=== PATIENT | female | born 2005 | race Caucasian/White ===

== ENCOUNTER 2024-07-11 21:31 | Emergency (ER) | payer BC, SELFPAY ==
[2024-07-11] VITALS (20 sets, daily range): BP systolic 119–148; BP diastolic 79–92; PULSE 79–95; TEMP 37.1; O2SAT 97–98; BMI 42.9
--- NOTE | 2024-07-11 22:23 | ED_ITS ---
HPI - Arrhythmia/Palpitations General Chief Complaint: Arrhythmia/Palpitations Stated Complaint: RACING HEART Time Seen by Provider: 07/11/24 22:14 Source: patient Mode of arrival: walk-in Limitations: no limitations History of Present Illness HPI narrative: presents complaining of racing heart. States episode yesterday and again tonight. Seen at [facility] at the beginning of this week for the same and states she was found to have mild hypomagnesemia and hypokalemia. Was prescribed prozac by her PCP over a month ago for anxiety but d/shona it because it caused her to have chest pain. Now prescribed ativan to take prn. States it help with the anxiety but not the heart rate feels now her heart is racing even though on the monitor she is NSR Related Data Allergies Allergy/AdvReac Type Severity Reaction Status Date / Time No Known Drug Allergies Allergy Verified 07/11/24 21:35 Review of Systems ROS Status of ROS 10 or more systems reviewed and unremark able except as noted in history and below PFSH PFSH Social History Little interest or pleasure in doing things: not at all Feeling down, depressed, or hopeless: not at all Exam Constitutional Vital Signs, click to edit/add: Last Vital Signs Temp 98.7 F 07/11/24 21:35 Pulse 86 07/11/24 23:40 Resp 18 07/11/24 23:40 BP 119/79 07/11/24 22:31 Pulse Ox 97 07/11/24 22:40 O2 Del Method Room Air 07/11/24 21:35 Common normals: no apparent distress, average body habitus, oriented x3, no limitations, healthy appearing, alert and well nourished [facility] Common normals: normocephalic and head/scalp atraumatic Eye Common normals: EOMs intact bilaterally and conjunctivae normal Respiratory Common normals: normal respiratory effort, no retractions, no use of accessory muscles and clear to auscultation bilaterally Cardio Common normals: regular rate, regular rhythm, S1 normal heart sound and S2 normal heart sound GI Common normals: Normal to inspection, nondistended, normoactive bowel sounds present, soft to palpation and non-tender Extremity Common normals: normal to inspection and full ROM Neuro Common normals: oriented x3, CN's II-XII intact bilaterally, moves all extremities, no focal motor deficits and no sensory deficits noted Psych Appearance: grossly normal Course Vital Signs Vital signs: Vital Signs Temperature 98.7 F 07/11/24 21:35 Pulse Rate 84 07/11/24 21:35 Respiratory Rate 99 H 07/11/24 21:35 Blood Pressure 148/92 H 07/11/24 21:35 Pulse Oximetry 98 07/11/24 21:35 Oxygen Delivery Method Room Air 07/11/24 21:35 Temperature 98.7 F 07/11/24 21:35 Pulse Rate 86 07/11/24 23:40 Respiratory Rate 18 07/11/24 23:40 Blood Pressure 119/79 07/11/24 22:31 Pulse Oximetry 97 07/11/24 22:40 Oxygen Delivery Method Room Air 07/11/24 21:35 MDM - Arrhythmia/Palpitations MDM Narrative Medical decision making narrative: patient presents with sensation of heart racing. on monitor she is in NSR and still complains of sensation of heart racing. Her exam is neg. Her labs, cxray and EKG normal. Patient informed of working diagnosis of anxiety and discharged home Lab Data Labs: Lab Results 07/11/24 Range/Units 22:55 WBC 8.7 (4.0-11.0) 10^3/uL RBC 4.97 (4.20-5.40) 10^6/uL Hgb 12.3 (12.0-16.0) g/dL Hct 39.4 (36.0-48.0) % MCV 79.3 L (81.0-99.0) fL MCH 24.7 L (26.7-34.0) pg MCHC 31.2 (29.9-35.2) g/dL RDW 13.9 (11.0-15.0) % Plt Count 362 (150-450) 10^3/uL MPV 9.9 (9.5-13.5) fL Neut % (Auto) 68.4 (43.0-75.0) % Lymph % (Auto) 23.6 (20.5-60.0) % [place] % (Auto) 6.5 (1.7-12.0) % Eos % (Auto) 1.1 (0.9-7.0) % Baso % (Auto) 0.2 (0.2-2.0) % Neut # (Auto) 6.0 (1.4-6.5) 10^3/uL Lymph # (Auto) 2.1 (1.2-3.8) 10^3/uL [place] # (Auto) 0.6 (0.3-0.8) 10^3/uL Eos # (Auto) 0.1 (0.0-0.7) 10^3/uL Baso # (Auto) 0.0 (0.0-0.1) 10^3/uL Abs Immat Gran (auto) 0.02 (0.00-0.03) 10^3/uL Imm/Tot Granulo (auto) 0.2 (0.0-0.5) % Sodium 138 (136-145) mmol/L Potassium 3.9 (3.5-5.1) mmol/L Chloride 104 (98-107) mmol/L Carbon Dioxide 27.3 (21.0-32.0) mmol/L Anion Gap 10.6 BUN 10.0 (6.4-19.3) mg/dL Creatinine 0.77 (0.55-1.02) mg/dL Est GFR ( Amer) >60 (>=60) Est GFR (Non-Af Amer) >60 (>=60) BUN/Creatinine Ratio 13.0 Glucose 105 (74-106) mg/dL Calcium 9.0 (8.5-10.1) mg/dL Troponin I High Sens 4.9 (4.0-51.3) pg/mL Discharge Plan Discharge Chief Complaint: Arrhythmia/Palpitations Clinical Impression: Anxiety Patient Disposition: Home, Self-Care Print Language: Palestinian Instructions: Anxiety (ED) Referrals: KOSTAS STILES [Primary Care Provider] - 1 week
--- NOTE | 2024-07-11 22:28 | XR_ITS ---
The [address] [address] Patient Name: PABLO THURSTON MRN: [id number] date: 2005 Sex: F Assigned Patient Location: ER Current Patient Location: ER Accession/Order Number: [id number] Exam Date: 07/11/2024 22:55 Report Date: 07/11/2024 23:35 At the request of: BEBA OLIVARES Procedure: XR chest 1V EXAM: XR chest 1V HISTORY: tachycardia COMPARISON: None. TECHNIQUE: AP portable upright view of the chest FINDINGS: Lungs are clear of focal consolidation. No pleural effusion or pneumothorax. Normal cardiomediastinal silhouette. No pulmonary vascular congestion. No acute osseous or soft tissue abnormalities. XR/XR chest 1V IMPRESSION: No acute cardiopulmonary process. Electronically authenticated by: CUONG ALAN Date: 07/11/2024 23:35
[2024-07-11 23:04] LABS: Basophils Percent Auto 0.2 % (0.2-2.0); Eosinophils Absolute Auto 0.1 10^3/uL (0.0-0.7); Eosinophils Percent Auto 1.1 % (0.9-7.0); Hematocrit 39.4 % (36.0-48.0); Hemoglobin 12.3 g/dL (12.0-16.0); Immature Granulocytes Abs Auto 0.02 10^3/uL (0.00-0.03); Immature Granulocytes Pct Auto 0.2 % (0.0-0.5); Lymphocytes Absolute Auto 2.1 10^3/uL (1.2-3.8); Lymphocytes Percent Auto 23.6 % (20.5-60.0); Mean Corpuscular HGB Conc 31.2 g/dL (29.9-35.2); Mean Corpuscular Hemoglobin 24.7 pg (26.7-34.0); Mean Corpuscular Volume 79.3 fL (81.0-99.0); Mean Platelet Volume 9.9 fL (9.5-13.5); Monocytes Absolute Auto 0.6 10^3/uL (0.3-0.8); Monocytes Percent Auto 6.5 % (1.7-12.0); Neutrophils Percent Auto 68.4 % (43.0-75.0); Platelet Count 362 10^3/uL (150-450); Red Blood Count 4.97 10^6/uL (4.20-5.40); Red Cell Distribution Width 13.9 % (11.0-15.0); White Blood Count 8.7 10^3/uL (4.0-11.0)
[2024-07-11 23:29] LABS: Anion Gap 10.6; Carbon Dioxide 27.3 mmol/L (21.0-32.0); Chloride 104 mmol/L (98-107); Estimated GFR (African America >60 (>=60); Estimated GFR (Non-African Ame >60 (>=60); Glucose 105 mg/dL (74-106); Potassium 3.9 mmol/L (3.5-5.1); Sodium 138 mmol/L (136-145); Troponin I High Sensitivity 4.9 pg/mL (4.0-51.3)
--- NOTE | 2024-07-12 00:43 | ECG_ITS ---
The [facility] Test Date: 2024-07-11 Pat Name: PABLO THURSTON Department: Room: - Gender: Female Medical Field Representative: : 2005 Requested By: [id number] Order Number: [id number] Reading MD: MIREYA BELLA Measurements Intervals [place] Rate: 79 P: 43 OK: 138 QRS: 75 QRSD: 74 T: 15 QT: 350 QTc: 384 Interpretive Statements 1100 Sinus rhythm 9110 normal ECG No previous ECG available for comparison Electronically Signed On 07-14-2024 22:54:04 EDT by MIREYA BELLA
== END 2024-07-12 00:05 | disposition home or self-care (01) ==
PROVIDERS: Emergency Provider Internal Medicine; Family Provider Family Medicine; PCP Family Medicine
DX: F41.9 Anxiety disorder, unspecified (principal)
CPT/HCPCS: 36415; 71045; 80048; 84484; 85025; 93005; 99285